=== PATIENT | male | born 2000 | race Two or more races ===

== ENCOUNTER 2022-03-26 07:04 | Emergency (ER) | payer OTHER ==
[~2022-03-26] VITALS: Ht 172.7 cm; Wt 72.6 kg
[2022-03-26 07:17] VITALS: BP 123/87
[2022-03-26] MEDS ORDERED: NAPR500T31 PO (08:22)
== END 2022-03-26 08:23 | disposition home or self-care (01) ==
LOC: ER 07:04
DX: S01.112A Laceration without foreign body of left eyelid and periocular area, initial encounter (principal); V43.52XA Car driver injured in collision with other type car in traffic accident, initial encounter; Y93.89 Activity, other specified; Y92.410 Unspecified street and highway as the place of occurrence of the external cause; Y99.8 Other external cause status
CPT/HCPCS: 12011; 70450